=== PATIENT | female | born 1940 | race African-American/Black ===

== ENCOUNTER 2018-11-12 21:16 | Inpatient (IN) | payer MEDICARE ==
[~2018-11-12] VITALS: Ht 152.4 cm; Wt 48.1 kg
[2018-11-12] MEDS ORDERED: ATOR10TA PO (21:47)
[2018-11-12] MEDS ORDERED: METF-440 PO (21:47)
[2018-11-12] MEDS ORDERED: AMLO5TAB4 PO (21:47)
[2018-11-12] MEDS ORDERED: LISI-603 PO (21:47)
[2018-11-12] MEDS ORDERED: TEMA7.5C PO (21:56)
[2018-11-12] MEDS ORDERED: NA P133E RC (21:56)
[2018-11-12] MEDS ORDERED: CLON0.5T PO (21:56)
[2018-11-12] MEDS ORDERED: DIVA125C2 PO (21:56)
[2018-11-12] MEDS ORDERED: BLOO-140 IN (21:56)
[2018-11-12] MEDS ORDERED: OLAN7.5T3 PO (21:56)
[2018-11-12] MEDS ORDERED: ACET325T53 PO (21:56)
[2018-11-12] MEDS ORDERED: BISA10SU61 RC (21:56)
[2018-11-12] MEDS ORDERED: MAGN400O6 PO (21:56)
[2018-11-12 22:16] LABS: EOSINOPHILS # (AUTO) 0.1 K/uL (0.0-0.7); EOSINOPHILS % (AUTO) 2.2 % (0.0-7.0); HEMOGLOBIN 14.6 g/dL (10.9-14.3); LYMPHOCYTES # (AUTO) 1.3 K/uL (20.0-40.0); LYMPHOCYTES % (AUTO) 28.8 % (20.5-51.5); MEAN CORPUSCULAR HEMOGLOBIN 29.2 uug (24.7-32.8); MEAN CORPUSCULAR HGB CONC 33 g/dL (32.3-35.6); MEAN CORPUSCULAR VOLUME 87.8 fL (75.5-95.3); MONOCYTES # (AUTO) 0.5 K/uL (2.0-10.0); MONOCYTES % (AUTO) 10.3 % (0.0-11.0); NEUTROPHILS # (AUTO) 2.7 K/uL (1.8-8.9); NEUTROPHILS % (AUTO) 57.7 % (38.5-71.5); PLATELET COUNT (AUTO) 176 K/uL (179-408); RED BLOOD CELL COUNT(AUTO) 5.01 MIL/uL (3.63-4.92); WHITE BLOOD COUNT (AUTO) 4.6 K/uL (3.8-11.8)
[2018-11-12 22:26] LABS: CARBON DIOXIDE 30 mmol/L (21-32); CHLORIDE 106 mmol/L (98-107); CREATININE 0.7 mg/dL (0.6-1.3); GLUCOSE 236 mg/dL (74-106); POTASSIUM 4.1 mmol/L (3.5-5.1); UREA NITROGEN, BLOOD 21 mg/dL (7-18)
[2018-11-12 22:30] LABS: ACETAMINOPHEN < 2.0 ug/mL (10-30); ALANINE AMINOTRANSFERASE 39 U/L (14-59); ALKALINE PHOSPHATASE 114 U/L (50-136); ASPARTATE AMINOTRANSFERASE 20 U/L (15-37); BILIRUBIN,DIRECT 0.1 mg/dL (0.0-0.2); BILIRUBIN,TOTAL 0.2 mg/dL (0.2-1.0); TOTAL PROTEIN, SERUM 7.4 g/dL (6.4-8.2)
--- NOTE | 2018-11-12 22:42 | NUR ---
MEDICALLY CLEARED BY DR RAMOS
[2018-11-12 22:45] LABS: ETHANOL < 3 MG/DL (0-0)
[2018-11-12 22:54] LABS: *BILIRUBIN,URIN NEGATIVE (NEGATIVE); *CLARITY,URINE CLOUDY (CLEAR); *KETONES,URINE NEGATIVE (NEGATIVE); *UROBILINOGEN,URINE 0.2 E.U./dl (NORMAL); LEUKOCYTE ESTERASE ,URINE 1+ (NEGATIVE); NITRITE, URINE NEGATIVE (NEGATIVE); PH,URINE 5.5 (5.0-8.0)
[2018-11-12 23:00] LABS: *BLOOD, URINE TRACE (NEGATIVE); UGLUCOSE 3+ (NEGATIVE)
[2018-11-12 23:01] LABS: *COLOR,URINE LIGHT YELLOW (YELLOW)
[2018-11-12 23:02] LABS: *AMPHETAMINE, URINE NEGATIVE (NEGATIVE); *BARBITURATE, URINE NEGATIVE (NEGATIVE); *CANNABINOID, URINE NEGATIVE (NEGATIVE); *COCCAINE, URINE NEGATIVE (NEGATIVE); *OPIATE, URINE NEGATIVE (NEGATIVE); *PHENCYCLIDINE SCREEN,URINE NEGATIVE (NEGATIVE)
[2018-11-12 23:05] LABS: BACTERIA,URINE MANY /HPF (NONE SEEN); SQUAMOUS EPITHELIAL CELL,UR FEW /HPF (NONE SEEN); WBC,URINE 20-50 /HPF (0-3); YEAST,URINE MANY /HPF (NONE SEEN)
[2018-11-12] MEDS ORDERED: LEVOFLOXACIN 750 MG TABLET PO ONE (23:15)
--- NOTE | 2018-11-12 23:22 | NUR ---
Report given to Nikia BAKER [facility].
[2018-11-12] MEDS ORDERED: LEVOFLOXACIN 750 MG TABLET ONE (23:26)
--- NOTE | 2018-11-12 23:30 | NUR ---
Pt wanded by security and searched for contraband.
[2018-11-13] MEDS ORDERED: MAGNESIUM HYDROXIDE 30 ML LIQUID UDC PO PRN
[2018-11-13] MEDS ORDERED: MAG HYDROX/AL HYDROX/SIMETH 30 ML LIQUID UDC PO PRN
[2018-11-13 00:50] VITALS: BP 156/71
--- NOTE | 2018-11-13 01:00 | NUR ---
GPS: Admitted to unit earlier a 78 yr.old female who was medically cleared in our E.R. Pt.is on a 72 hour hold for GD. /TECHNICAL ILLUSTRATOR [place] notified of pt's admission to the unit. Pt.is alert to self. Poor insight to present situation. Angry,irritable,easily agitated and uncooperative during admission process. Pt.was just recently discharged from [facility] psych unit when upon admission at SNF she became hostile,verbally aggressive and refusing care from staff and refusing meds.,per hold. Frequent re-direction and limit setting provided. Safety emphasized. Will monitor behavior.
[2018-11-13] MEDS ORDERED: BISACODYL 10 MG SUPP.RECT RC PRN (01:15)
[2018-11-13] MEDS ORDERED: DEXTROSE 50% 50 ML DISP.SYRIN IV PRN (01:15)
[2018-11-13] MEDS ORDERED: ACETAMINOPHEN 325 MG TABLET PO PRN ×2 (01:15)
[2018-11-13] MEDS: BLOOD SUGAR DIAGNOSTIC 1 EACH STRIP VI SCH ×4 (06:41→21:00)
[2018-11-13 08:06] VITALS: BP 135/65
[2018-11-13] MEDS ORDERED: LEVOFLOXACIN 750 MG TABLET PO SCH (09:00)
[2018-11-13] MEDS: LISINOPRIL 20 MG TABLET PO SCH (09:00)
[2018-11-13] MEDS: AMLODIPINE 5 MG TABLET PO SCH (09:00)
--- NOTE | 2018-11-13 10:15 | NUR ---
0730 Patient refused insulin coverage despite of the encouragement and education. Also routine medicatiopn refused including antibiotic, offered 4x but patient styrongly refused and became agitated.
[2018-11-13] MEDS ORDERED: OLANZAPINE 10 MG VIAL IM ONE (12:30)
--- NOTE | 2018-11-13 13:08 | NUR ---
Initial Discharge Plan: Patient is a 78 year old female who is currently a resident at [facility] [[address] [place] [address]; ]. Per patient daughter, Shaylee [ ], she would like patient to return when ready. cooler room worker spoke with Mary Olivo, campus wellness coordinator at facility, who states that they are only able to accept patient back if they have a bed available at time of discharge. Per Mary, patient family refused to put patient on a bed hold and patient does not have [facility]. Patient may need new placement if there is no bed available at discharge. cooler room worker will continue to collaborate with patient, patient family, and MD on a safe and proper discharge.
[2018-11-13 15:16] VITALS: BP 117/61
[2018-11-13] MEDS: DIVALPROEX SPRINKLE 125 MG CAP.SPRINK PO SCH ×2 (16:30→21:00)
[2018-11-13] MEDS: OLANZAPINE ZYDIS 5 MG TAB.RAPDIS PO SCH (17:00)
--- NOTE | 2018-11-13 18:00 | NUR ---
Patient continue to refused medications and accucheck despite of the encouragement and education regarding risk and benefits of each meds
[2018-11-13] MEDS ORDERED: diphenhydrAMINE 50 MG/1 ML VIAL IM ONE (20:30)
[2018-11-13] MEDS ORDERED: HALOPERIDOL LACTATE 5 MG/1 ML VIAL IM ONE (20:30)
[2018-11-13] MEDS ORDERED: LORAZEPAM 2 MG/1 ML VIAL IM ONE (20:30)
--- NOTE | 2018-11-13 20:45 | NUR ---
Received patient earlier in the shift very agitated. Going in and out of rooms including nurses station, unable to redirect. Patient refused to take any oral medication and was shouting at staff and patients. Very unmanageable and threatening . Including banging on the TV in the rec room scaring other patients. MD notified, and orders received for IM injection. Patient received medication without incidence. Monitoring patient closely at this time. Patient in shonda chair at nurses station to keep patient safe and free from injury.
[2018-11-13] MEDS: ATORVASTATIN 10 MG TABLET PO SCH (21:00)
[2018-11-13] MEDS: CEphaleXIN 500 MG CAPSULE PO SCH (21:00)
--- NOTE | 2018-11-13 21:55 | NUR ---
Patient resting quietly at this time.. Easy to arouse when talked to. Continuing to monitor for safety or any other issues that might arise. No distress noted.
--- NOTE | 2018-11-14 03:26 | NUR ---
Patient is in bed sleeping. No s/s of distress. Monitoring patient with frequent rounding to ensure safety.
[2018-11-14] MEDS: BLOOD SUGAR DIAGNOSTIC 1 EACH STRIP VI SCH ×4 (06:56→21:19)
[2018-11-14 07:30] VITALS: BP 148/71
[2018-11-14] MEDS: DIVALPROEX SPRINKLE 125 MG CAP.SPRINK PO SCH ×2 (09:00→21:19)
[2018-11-14] MEDS: LISINOPRIL 20 MG TABLET PO SCH (09:00)
[2018-11-14] MEDS: AMLODIPINE 5 MG TABLET PO SCH (09:00)
[2018-11-14] MEDS: CEphaleXIN 500 MG CAPSULE PO SCH ×2 (09:00→21:19)
[2018-11-14] MEDS: OLANZAPINE ZYDIS 5 MG TAB.RAPDIS PO SCH ×2 (09:00→17:00)
--- NOTE | 2018-11-14 10:24 | NUR ---
OFFERED ROUTINE MORNING MEDICATIONS 4X TO PATIENT, ENCOURAGED AND EXPLAINED THE RISK AND BENEFITS OF EACH MEDICATION BUIT PATIENT STILL REFUSING.
[2018-11-14 16:00] VITALS: BP 103/48
--- NOTE | 2018-11-14 20:00 | NUR ---
RECEIVED PATIENT IN THE HALLWAY SITTING IN A GERMÁN CHAIR, SHE IS NOTED A/O X 1, FORGETFUL, SHE IS NOTED CALM AT THIS TIME. IMPAIRED INSIGHT AND JUDGMENT IS NOTED TO THE REASON FOR HER ADMISSION TO MHU. V/S STABLE AT THIS TIME. PATIENT WAS REASSURED FOR HER SAFETY. SAFETY AND FALL PRECAUTION ARE IN PLACED. WILL CONTINUE TO MONITOR.
[2018-11-14 20:34] VITALS: BP 121/53
[2018-11-14] MEDS: INSULIN REGULAR, HUMAN 300 UNIT/3 ML VIAL SQ PRN (21:17)
[2018-11-14] MEDS: ATORVASTATIN 10 MG TABLET PO SCH (21:19)
--- NOTE | 2018-11-14 22:00 | NUR ---
PATIENT WAS COMPLIANT WITH MEDICATION REGIMENT. WILL CONTINUE TO MONITOR.
[2018-11-15] MEDS: TEMAZEPAM 7.5 MG CAPSULE PO PRN (00:48)
--- NOTE | 2018-11-15 00:50 | NUR ---
PATIENT NOTED RESTLESS. SHE WAS HELPED TO THE BATHROOM. HOWEVER CONTINUE RESTLESS. RESTORIL 7.5MG PO PRN WAS GIVEN. WILL CONTINUE TO MONITOR.
[2018-11-15] MEDS: BLOOD SUGAR DIAGNOSTIC 1 EACH STRIP VI SCH ×4 (07:05→20:55)
[2018-11-15 07:30] VITALS: BP 108/55
[2018-11-15] MEDS: DIVALPROEX SPRINKLE 125 MG CAP.SPRINK PO SCH ×3 (08:10→17:58)
[2018-11-15] MEDS: OLANZAPINE ZYDIS 5 MG TAB.RAPDIS PO SCH ×2 (08:10→17:58)
[2018-11-15] MEDS: CEphaleXIN 500 MG CAPSULE PO SCH ×2 (08:10→20:31)
[2018-11-15] MEDS: LISINOPRIL 20 MG TABLET PO SCH (08:15)
[2018-11-15] MEDS: AMLODIPINE 5 MG TABLET PO SCH (08:15)
[2018-11-15] MEDS: INSULIN REGULAR, HUMAN 300 UNIT/3 ML VIAL SQ PRN ×3 (08:19→20:59)
[2018-11-15 16:00] VITALS: BP 114/65
[2018-11-15 20:26] VITALS: BP 146/65
[2018-11-15] MEDS: ATORVASTATIN 10 MG TABLET PO SCH (20:31)
--- NOTE | 2018-11-16 06:32 | NUR ---
GPS: Remain uncooperative with medications.cooperative with care. took shower with help. slept only 1:30 hrs through the night. sleeping meds offered but patient refused. continue plan of care.
[2018-11-16] MEDS: BLOOD SUGAR DIAGNOSTIC 1 EACH STRIP VI SCH ×4 (06:40→21:10)
[2018-11-16] MEDS: DIVALPROEX SPRINKLE 125 MG CAP.SPRINK PO SCH ×3 (09:08→17:07)
[2018-11-16] MEDS: CEphaleXIN 500 MG CAPSULE PO SCH ×2 (09:08→20:51)
[2018-11-16] MEDS: OLANZAPINE ZYDIS 5 MG TAB.RAPDIS PO SCH ×2 (09:08→17:07)
[2018-11-16] MEDS: AMLODIPINE 5 MG TABLET PO SCH (09:11)
[2018-11-16] MEDS: LISINOPRIL 20 MG TABLET PO SCH (09:13)
[2018-11-16] MEDS: INSULIN REGULAR, HUMAN 300 UNIT/3 ML VIAL SQ PRN ×2 (11:23→21:16)
[2018-11-16] MEDS ORDERED: OLANZAPINE 10 MG VIAL IM ONE (13:00)
--- NOTE | 2018-11-16 17:48 | NUR ---
GPS: RECEIVED PATIENT ASLEEP ON BED, ALERT , ORIENTED X1, SEEN AMBULATING IN THE HALLWAY, GOING TO OTHER PATIENTS ROOM AND TRIES TO REMOVE BLANKET AND BEDSHEET FROM HER PATIENT SCREAMING AND HITTING STAFF, PRN MEDICATION ORDERED GIVEN VIA IM, PATIENT WAS PUT TO GERMÁN CHAIR, PATIENT ABLE TO TAKE SOME SLEEP AND COMPLY WITH MEDICATION AND DIET, WILL CONTINUE MONITOR,
[2018-11-16] MEDS: ATORVASTATIN 10 MG TABLET PO SCH (20:51)
[2018-11-16 21:52] VITALS: BP 154/68
[2018-11-16 22:00] VITALS: BP 138/76
[2018-11-16] MEDS: LORAZEPAM 0.5 MG TABLET PO PRN (22:41)
--- NOTE | 2018-11-16 22:42 | NUR ---
GPS: PATIENT IS WONDERING AROUND.GOING TO OTHER PATIENT'S ROOM. DISTURBING OTHER PATIENT'S. ATIVAN 0.5 MG PO GIVEN FOR AGITATION.
--- NOTE | 2018-11-16 23:42 | NUR ---
GPS: PATIENT IS CALM NOW. RESTING IN GERMÁN CHAIR. PRN EFFECTIVE.
--- NOTE | 2018-11-17 06:42 | NUR ---
GPS: Remain uncooperative with medications.cooperative with care. took shower with help. slept only 7 hrs through the night. ativan x1 given for anxiety and effective. continue plan of care.
[2018-11-17] MEDS: BLOOD SUGAR DIAGNOSTIC 1 EACH STRIP VI SCH ×4 (07:06→20:45)
[2018-11-17 07:30] VITALS: BP_SYST 158; BP_SYST 97; BP_DIAS 52; BP_DIAS 72
[2018-11-17] MEDS: AMLODIPINE 5 MG TABLET PO SCH (09:00)
[2018-11-17] MEDS: LISINOPRIL 20 MG TABLET PO SCH (09:00)
[2018-11-17] MEDS: CEphaleXIN 500 MG CAPSULE PO SCH ×2 (09:09→20:10)
[2018-11-17] MEDS: OLANZAPINE ZYDIS 5 MG TAB.RAPDIS PO SCH ×2 (09:09→18:03)
[2018-11-17] MEDS: DIVALPROEX SPRINKLE 125 MG CAP.SPRINK PO SCH ×3 (09:11→18:03)
[2018-11-17] MEDS: INSULIN REGULAR, HUMAN 300 UNIT/3 ML VIAL SQ PRN ×2 (19:01→20:49)
[2018-11-17] MEDS: ATORVASTATIN 10 MG TABLET PO SCH (20:11)
[2018-11-17 20:17] VITALS: BP 133/61
--- NOTE | 2018-11-17 23:50 | NUR ---
GPS: Pt.still awake at this time. Wandering/pacing along the hallways. Re-directed frequently. Refused sleeping pill when offered despite explanation of risks vs benefits x3. Will monitor closely for further escalation of behavior.
[2018-11-18] MEDS: BLOOD SUGAR DIAGNOSTIC 1 EACH STRIP VI SCH ×4 (06:30→20:48)
[2018-11-18 07:30] VITALS: BP 161/71
[2018-11-18] MEDS: AMLODIPINE 5 MG TABLET PO SCH (08:15)
[2018-11-18] MEDS: DIVALPROEX SPRINKLE 125 MG CAP.SPRINK PO SCH ×2 (08:15→17:42)
[2018-11-18] MEDS: CEphaleXIN 500 MG CAPSULE PO SCH (08:15)
[2018-11-18] MEDS: LISINOPRIL 20 MG TABLET PO SCH (08:15)
[2018-11-18] MEDS: OLANZAPINE ZYDIS 5 MG TAB.RAPDIS PO SCH ×2 (08:15→17:42)
--- NOTE | 2018-11-18 12:20 | NUR ---
Firearms Report: street worker completed and submitted a [employer] firearms report for a 5250 GD certification.
--- NOTE | 2018-11-18 18:55 | NUR ---
REFUSED PODIATRY CONSULT
[2018-11-18] MEDS: LORAZEPAM 0.5 MG TABLET PO PRN (19:52)
[2018-11-18 20:00] VITALS: BP 161/77
[2018-11-18] MEDS: ATORVASTATIN 10 MG TABLET PO SCH (20:00)
--- NOTE | 2018-11-18 22:00 | NUR ---
received to care, up in shonda chair, talking to self. labile when engaged. PRN ativan given around 1953. by 2099, she appeared calmer, but became angry and verbally abusive, when asked if staff could check her blood sugar. she adamantly refused, but calmed down, after being left alone. as of 2199, she remains asleep, in sohnda chair (she refused to go to bed). no distress noted. will continue to monitor closely.
[2018-11-19] MEDS: BLOOD SUGAR DIAGNOSTIC 1 EACH STRIP VI SCH ×4 (06:49→21:00)
[2018-11-19 07:30] VITALS: BP 93/51
[2018-11-19] MEDS: OLANZAPINE ZYDIS 5 MG TAB.RAPDIS PO SCH ×2 (08:46→16:32)
[2018-11-19] MEDS: LISINOPRIL 20 MG TABLET PO SCH (08:46)
[2018-11-19] MEDS: AMLODIPINE 5 MG TABLET PO SCH (08:47)
[2018-11-19] MEDS: DIVALPROEX SPRINKLE 125 MG CAP.SPRINK PO SCH ×2 (08:48→16:32)
[2018-11-19] MEDS: INSULIN REGULAR, HUMAN 300 UNIT/3 ML VIAL SQ PRN (11:26)
[2018-11-19 15:46] VITALS: BP 124/47
--- NOTE | 2018-11-19 18:24 | NUR ---
GPS; RECEIVED PATIENT AMBULATING IN THE HALLWAY, PATIENT COMPLIANT WITH MEDICATION , PATIENT DENIES PAIN NO SOB, PATIENT STARTED TO GO OTHER PATIENTS ROOM, PATIENT REFUSES PRN MED, ASSISTED ON THE GERICHAIR FOR SAFETY, PATIENT ABLE TO SLEEP AND REST, WILL CONTINUE MONITOR
[2018-11-19] MEDS: LORAZEPAM 0.5 MG TABLET PO PRN (20:07)
[2018-11-19] MEDS: ATORVASTATIN 10 MG TABLET PO SCH (20:07)
[2018-11-19 20:33] VITALS: BP 116/48
--- NOTE | 2018-11-19 22:00 | NUR ---
received to care, up in shonda chair, talking to self. labile when engaged. PRN ativan was given around 2003. by 2099, she appeared slightly calmer, but became angry and verbally abusive, when asked if staff could check her blood sugar. she adamantly refused, but calmed down, after being left alone. as of 2199, she remains awake, in shonda chair (she refused to go to bed). remains agitated and restless, talking to self. PRN restoril was offered for insomnia, but she refused. currently fidgeting in chair, talking to self. will continue to monitor closely.
--- NOTE | 2018-11-20 06:00 | NUR ---
slept 4.5 hours. continues to sleep. no distress noted.
--- NOTE | 2018-11-20 06:30 | NUR ---
refused am accu check
[2018-11-20 07:30] VITALS: BP 136/55
[2018-11-20] MEDS: BLOOD SUGAR DIAGNOSTIC 1 EACH STRIP VI SCH ×4 (08:03→21:00)
[2018-11-20] MEDS: OLANZAPINE ZYDIS 5 MG TAB.RAPDIS PO SCH ×2 (09:49→17:06)
[2018-11-20] MEDS: LISINOPRIL 20 MG TABLET PO SCH (09:49)
[2018-11-20] MEDS: AMLODIPINE 5 MG TABLET PO SCH (09:50)
[2018-11-20] MEDS: DIVALPROEX SPRINKLE 125 MG CAP.SPRINK PO SCH ×2 (09:50→17:06)
[2018-11-20] MEDS: INSULIN REGULAR, HUMAN 300 UNIT/3 ML VIAL SQ PRN ×3 (12:02→18:07)
--- NOTE | 2018-11-20 13:35 | NUR ---
APS REPORT: offal worker completed and submitted an APS Report on behalf of patient for suspected self-neglect and unsafe living conditions. Report was made on 11/20/2018 at 1:32pm [Report #[id number]]. offal worker will follow-up as needed.
[2018-11-20] MEDS: LORAZEPAM 0.5 MG TABLET PO PRN (14:10)
[2018-11-20 19:55] VITALS: BP 101/82
[2018-11-20] MEDS: ATORVASTATIN 10 MG TABLET PO SCH (20:11)
[2018-11-20] MEDS: TEMAZEPAM 7.5 MG CAPSULE PO PRN (20:12)
--- NOTE | 2018-11-20 22:00 | NUR ---
received to care, up in shonda chair, talking to self. labile when engaged. compliant with medications, but refused blood sugar check. PRN restoril was given at 2011, for insomnia. as of 2199, she appears to be asleep, in shonda chair (she refused to go to bed). no distress noted. will continue to monitor closely.
--- NOTE | 2018-11-21 06:00 | NUR ---
slept 7 hours. refused am accu check
[2018-11-21] MEDS: BLOOD SUGAR DIAGNOSTIC 1 EACH STRIP VI SCH ×4 (07:01→20:40)
[2018-11-21 07:30] VITALS: BP 108/46
[2018-11-21] MEDS: LISINOPRIL 20 MG TABLET PO SCH (09:05)
[2018-11-21] MEDS: OLANZAPINE ZYDIS 5 MG TAB.RAPDIS PO SCH ×2 (09:05→18:26)
[2018-11-21] MEDS: AMLODIPINE 5 MG TABLET PO SCH (09:06)
[2018-11-21] MEDS: DIVALPROEX SPRINKLE 125 MG CAP.SPRINK PO SCH ×2 (09:07→18:26)
--- NOTE | 2018-11-21 13:30 | NUR ---
Gps/Principal Software Architect- Unable to give insulin coverage(sliding scale) patient didnt eat lunch, lethargic. Skin dry, warm , arousable. Accu-check before lunch was 247.
--- NOTE | 2018-11-21 17:00 | NUR ---
Gps/Nuclear Test Technician- Patient easily get agitated when trying to assist patient to the bathroom to void,trying to hit staff during her care. Ambulated CGA.Assist with hygiene.
[2018-11-21 19:54] VITALS: BP 105/52
[2018-11-21] MEDS: ATORVASTATIN 10 MG TABLET PO SCH (20:31)
[2018-11-21] MEDS: INSULIN REGULAR, HUMAN 300 UNIT/3 ML VIAL SQ PRN (20:47)
[2018-11-21] MEDS: TEMAZEPAM 7.5 MG CAPSULE PO PRN (23:17)
--- NOTE | 2018-11-22 06:08 | NUR ---
GPS: Remain uncooperative with care. ambulate to bathroom with assistance. slept 4:30 hrs through the night after restoril 7.5 mg po given. resting in bed comfortably. no agitation noted at this time.
[2018-11-22] MEDS: BLOOD SUGAR DIAGNOSTIC 1 EACH STRIP VI SCH ×4 (06:24→21:23)
[2018-11-22] MEDS: AMLODIPINE 5 MG TABLET PO SCH (09:00)
[2018-11-22] MEDS: LISINOPRIL 20 MG TABLET PO SCH (09:00)
[2018-11-22] MEDS: OLANZAPINE ZYDIS 5 MG TAB.RAPDIS PO SCH ×2 (09:57→17:25)
[2018-11-22] MEDS: DIVALPROEX SPRINKLE 125 MG CAP.SPRINK PO SCH ×2 (09:57→17:25)
--- NOTE | 2018-11-22 18:00 | NUR ---
Gps/Scout Sniper- Showered self after set up.Refusing routine pm meds., claimed she was given too many medications today, reviewed routine meds, re offered administered with zohaib obrien. Needed redirections gets intrusive , easily get irritable.Ambulates around the hallway, reviewed safety.
--- NOTE | 2018-11-22 18:37 | NUR ---
Gps/Service Delivery Manager- Noted patient has poorly groomed toenails, long and curly, difficulty putting her slipper/socks, Restaurant Server needed.
--- NOTE | 2018-11-22 20:15 | NUR ---
RECEIVED PATIENT IN THE DAY ROOM, SHE IS NOTED A/O X1 PACING THE UNIT, EASILY IRRITABLE, CONFUSED, FORGETFUL. TANGENTAL, IMPAIRED INSIGHT AND JUDGMENT IS NOTED TO THE REASON FOR HER ADMISSION TO MHU. REQUIRED MULTIPLE REDIRECTION. SHE WAS ABLE TO COMPLY WITH [facility] ACC CHECK (248). V/S STABLE AT THIS TIME. PT WAS REASSURED FOR HER SAFETY. WILL COTNINUE TO MONITOR.
[2018-11-22] MEDS: LORAZEPAM 0.5 MG TABLET PO PRN (20:42)
[2018-11-22] MEDS ORDERED: OLANZAPINE 10 MG VIAL IM ONE (21:00)
[2018-11-22] MEDS ORDERED: diphenhydrAMINE 50 MG/1 ML VIAL IM ONE (21:00)
[2018-11-22] MEDS ORDERED: LORAZEPAM 2 MG/1 ML VIAL IM ONE (21:00)
[2018-11-22] MEDS: ATORVASTATIN 10 MG TABLET PO SCH (21:00)
--- NOTE | 2018-11-22 21:00 | NUR ---
PATIENT ACCUCHECKS 248; HOWEVER, SHE REFUSED INSULIN SLIDING SCALE AND LIPITOR. WILL CONTINUE TO MONITOR.
--- NOTE | 2018-11-22 21:30 | NUR ---
PATIENT NOTED WONDERING THE UNIT, GOING INTO OTHER PATIENT'S ROOM. PACING THE UNIT, IRRITABLE, YELLING, UNABLE TO BE REDIRECTED, HOSTILE, ATTEMPTED TO GO INTO THE NURSING STATION, VERBALLY AGGRESSIVE. ATIVAN 0.5 MG PO PRN WAS OFFERED; HOWEVER, PATIENT REFUSED. SHE CONTINUE HOSTILE, IRRITABLE, UNABLE TO BE REDIRECTED. DR GALARZA WAS NOTIFY AND A NEW TELEPHONE ORDER WAS OBTAINED TO ADMINISTER ATIVAN 1MG IM, BENADRYL 25MG IM AND ZYPREXA 5MG IM. ORDER NOTED AND CARRIED OUT. WILL CONTINUE TO MONITOR.
[2018-11-22 22:17] VITALS: BP 136/72
--- NOTE | 2018-11-22 22:30 | NUR ---
PATIENT NOTED CALM AT THIS TIME.
[2018-11-23 07:30] VITALS: BP 161/71
[2018-11-23] MEDS: BLOOD SUGAR DIAGNOSTIC 1 EACH STRIP VI SCH ×4 (07:37→20:37)
[2018-11-23] MEDS: LISINOPRIL 20 MG TABLET PO SCH ×2 (09:00→11:29)
[2018-11-23] MEDS: DIVALPROEX SPRINKLE 125 MG CAP.SPRINK PO SCH ×3 (09:00→17:17)
[2018-11-23] MEDS: OLANZAPINE ZYDIS 5 MG TAB.RAPDIS PO SCH ×3 (09:00→17:17)
[2018-11-23] MEDS: AMLODIPINE 5 MG TABLET PO SCH ×2 (09:00→11:28)
--- NOTE | 2018-11-23 10:54 | NUR ---
Gps/Gastroenterology Manager- Unable to administer routine am meds. patient in deep sleep, will re offer at a later time when fully awake.
--- NOTE | 2018-11-23 12:44 | NUR ---
Gps/Lead Data Entry Operator- Stayed up on her babar-chair,patient was drowsy, unable to feed self. Kept pt. up by the Nurses stations, monitor closely for safety. Patient had late breakfast, blood sugar not checked , will rechecked before dinner time.
[2018-11-23 15:43] VITALS: BP 115/51
[2018-11-23] MEDS: INSULIN REGULAR, HUMAN 300 UNIT/3 ML VIAL SQ PRN (17:29)
[2018-11-23] MEDS: ATORVASTATIN 10 MG TABLET PO SCH ×2 (20:39→21:00)
[2018-11-23 20:59] VITALS: BP 144/63
--- NOTE | 2018-11-23 22:00 | NUR ---
RECEIVED PATIENT IN THE HALLWAY. SHE IS NOTED A/O X1 CONFUSED AND DISORIENTED. PATIENT NOTED WITH IMPAIRED INSIGHT AND JUDGMENT TO THE REASON FOR HER ADMISSION TO MHU. SHE IS NOTED WONDERING THE HALLWAY. SOMEWHAT REDIRECTABLE. SHE REFUSED ATIVAN 0.5 MG PO PRN. ACCUCHECK WAS DONE WITH RESULTS OF 240; HOWEVER, SHE REFUSED INSULIN, SHE REFUSED [facility] MEDICATION LIPITOR. V/S STABLE AT THIS TIME. SAFETY AN FALL PRECAUTION IN PLACED. PATIENT IS REASSURED FOR HER SAFETY. WILL CONTINUE TO MONITOR.
[2018-11-24 07:30] VITALS: BP 132/65
[2018-11-24] MEDS: BLOOD SUGAR DIAGNOSTIC 1 EACH STRIP VI SCH ×4 (07:53→20:22)
--- NOTE | 2018-11-24 09:12 | NUR ---
Gps/Senior Benefits Specialist- Asleep, unable to administer routine am. meds. will reoffer at a later time as soon as patient wakes up. In no signs of any distress.V/S stable.
[2018-11-24] MEDS: DIVALPROEX SPRINKLE 125 MG CAP.SPRINK PO SCH ×2 (09:59→17:27)
[2018-11-24] MEDS: OLANZAPINE ZYDIS 5 MG TAB.RAPDIS PO SCH ×2 (10:01→17:27)
[2018-11-24] MEDS: LISINOPRIL 20 MG TABLET PO SCH (10:01)
[2018-11-24] MEDS: AMLODIPINE 5 MG TABLET PO SCH (10:01)
--- NOTE | 2018-11-24 12:45 | NUR ---
Gps/Logistics Vice President- BS 204, patient refused insulin coverage , got agitated, throwing juice and foods at the staff. Kept up on her shonda-chair , ROCK WOOL INSULATOR assisted patient for lunch .
[2018-11-24] MEDS: INSULIN REGULAR, HUMAN 300 UNIT/3 ML VIAL SQ PRN ×2 (13:01→22:08)
[2018-11-24 16:00] VITALS: BP 133/58
[2018-11-24] MEDS: LORAZEPAM 0.5 MG TABLET PO PRN (20:24)
[2018-11-24] MEDS: ATORVASTATIN 10 MG TABLET PO SCH (20:24)
[2018-11-24 21:51] VITALS: BP 150/49
[2018-11-25] MEDS: BLOOD SUGAR DIAGNOSTIC 1 EACH STRIP VI SCH ×4 (06:50→20:16)
[2018-11-25 07:30] VITALS: BP 119/62
[2018-11-25] MEDS: AMLODIPINE 5 MG TABLET PO SCH (08:14)
[2018-11-25] MEDS: DIVALPROEX SPRINKLE 125 MG CAP.SPRINK PO SCH ×4 (08:15→16:38)
[2018-11-25] MEDS: LISINOPRIL 20 MG TABLET PO SCH (08:15)
[2018-11-25] MEDS: OLANZAPINE ZYDIS 5 MG TAB.RAPDIS PO SCH ×2 (08:15→16:38)
[2018-11-25] MEDS: LORAZEPAM 0.5 MG TABLET PO PRN ×3 (14:03→19:50)
[2018-11-25 16:21] VITALS: BP 116/59
[2018-11-25] MEDS: INSULIN REGULAR, HUMAN 300 UNIT/3 ML VIAL SQ PRN ×2 (16:37→20:18)
[2018-11-25] MEDS: ATORVASTATIN 10 MG TABLET PO SCH (20:15)
[2018-11-25 20:54] VITALS: BP 134/60
[2018-11-26] MEDS: BLOOD SUGAR DIAGNOSTIC 1 EACH STRIP VI SCH ×2 (06:31→11:26)
[2018-11-26 07:30] VITALS: BP 115/58
[2018-11-26] MEDS: DIVALPROEX SPRINKLE 125 MG CAP.SPRINK PO SCH ×2 (08:04→12:24)
[2018-11-26] MEDS: AMLODIPINE 5 MG TABLET PO SCH (08:04)
[2018-11-26 08:05] VITALS: BP 115/58
[2018-11-26] MEDS: OLANZAPINE ZYDIS 5 MG TAB.RAPDIS PO SCH (08:05)
[2018-11-26] MEDS: LISINOPRIL 20 MG TABLET PO SCH (08:05)
--- NOTE | 2018-11-26 11:07 | NUR ---
DC NOTE: Patient will be discharged to [facility] [[address] [place] [address]; ] and transportation will be provided by ambulance at 1:00pm. Please arrange ambulance transportation for this patient. orchid worker has spoken with [facility], who states they are ready to accept the patient today. Patient is AxOx1-2, denies suicidal ideations, is able to plan for basic self-care, and is agreeable with discharge plan. orchid worker called and spoke with patient step-daughter, Shaylee [[phone]], who is aware and agreeable with discharge plan. Patient will be followed by Dr. Kincaid (psychiatrist) and Dr. Freeman(tandem mill sticker) at the facility. Patient was provided with mental health resources including [facility] Crisis [facility] [ ], Amber Alexis [ ], and National Suicide Prevention Lifeline [ ].
--- NOTE | 2018-11-26 14:01 | NUR ---
Patient will be discharged to [facility] via ambulance ,report given to RN at [facility],vital sign stable.
== END 2018-11-26 14:15 | DRG 885 ==
LOC: ER 21:19 → GPS 23:42
PROVIDERS: ADMIT Psychiatry & Neurology Psychiatry; ATTEND Nurse Practitioner Acute Care
DX: F25.9 Schizoaffective disorder, unspecified (principal); E11.65 Type 2 diabetes mellitus with hyperglycemia; F03.91 Unspecified dementia, unspecified severity, with behavioral disturbance; N39.0 Urinary tract infection, site not specified; E78.5 Hyperlipidemia, unspecified; F41.9 Anxiety disorder, unspecified; M81.0 Age-related osteoporosis without current pathological fracture; I10 Essential (primary) hypertension; B35.1 Tinea unguium; I70.0 Atherosclerosis of aorta; Z79.4 Long term (current) use of insulin; Z91.14 Patient's other noncompliance with medication regimen; Z91.013 Allergy to seafood; Z79.899 Other long term (current) drug therapy; Z88.2 Allergy status to sulfonamides; Z91.041 Radiographic dye allergy status
CPT/HCPCS: 36415; 71045; 80164; 80307; 85025; 87086; 93005; A4663; G0480; G0480-TC; J1200; J1630; J1815; J2060; J2358